=== PATIENT | male | born 1970 | race Caucasian/White ===

== ENCOUNTER 2019-11-01 11:26 | Emergency (ER) | payer BC ==
[~2019-11-01] VITALS: Ht 182.9 cm; Wt 108.2 kg
[~2019-11-01 11:26] MED LIST: ANTIVERT 25MG25 MG PO; FLONASE NASAL S16 GM NS; NO HOME MEDICATIONS; NORCO 325 MG-51 TAB PO
[2019-11-01 11:39] VITALS: TEMP 99.1
[2019-11-01 12:17] LABS: BASO % 0.2 % (0.0-2.0); EOS % 0.5 % (0-4.0); GRAN % 82.6 % (42.2-75.2); HEMATOCRIT 44.1 % (42.0-52.0); LYMPH # 0.7 (1.2-3.4); MEAN CELL VOLUME 81 fl (80.0-100.0); MEAN CORPUSCULAR HEMOGLOBIN 26 pg (27.0-31.0); MEAN CORPUSCULAR HGB CONC 32 g/dl (33.0-37.0); MEAN PLATELET VOLUME 9.6 fl (7.4-10.4); MONO # 0.3 (0.1-0.6); PLATELET COUNT 277 K/mm3 (130-400); RED BLOOD COUNT 5.44 M/mm3 (4.20-5.60)
[2019-11-01 12:22] LABS: ALBUMIN 4.2 gm/dL (3.5-5.0); BILIRUBIN,TOTAL 0.4 mg/dL (0.0-1.0); CALCIUM 9.2 mg/dL (8.4-10.2); CREATININE, serum 1.05 (0.66-1.25); POTASSIUM 4.3 mmol/L (3.4-5.0); TOTAL PROTEIN 7.5 gm/dL (6.4-8.2)
[2019-11-01 13:45] VITALS: BP 105/73; PULSE 98
== END 2019-11-01 13:56 | disposition home or self-care (01) ==
LOC: COL.ER 11:26
PROVIDERS: Emergency Medicine
DX: U07.1 COVID-19 (principal); E11.9 Type 2 diabetes mellitus without complications; Z79.51 Long term (current) use of inhaled steroids; Z79.84 Long term (current) use of oral hypoglycemic drugs
CPT/HCPCS: J7030

== ENCOUNTER → 2020-03-23 | Outpatient (CLI) | payer BC | LOC: ZCOL.LAB 15:50 | DX: I15.9 Secondary hypertension, unspecified (principal); R06.02 Shortness of breath; R05 Cough ==

== ENCOUNTER 2020-05-30 07:36 | Day surgery (SDC) | payer BC ==
[~2020-05-30] VITALS: Ht 182.9 cm; Wt 115.5 kg
[2020-05-30 08:36] VITALS: BP 150/95; PULSE 85; TEMP 99
[2020-05-30] MEDS ORDERED: GLUCOPHAGE1000 MG PO (08:42)
[2020-05-30] MEDS ORDERED: VITAMIN C500 MG PO (08:43)
[2020-05-30] MEDS ORDERED: NATURAL IRON65 MG PO (08:43)
[2020-05-30 09:55] VITALS: BP 110/84; PULSE 84; TEMP 97.2
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
[2020-05-30 10:10] VITALS: BP 120/98; PULSE 77
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
[2020-05-30 10:25] VITALS: BP 135/103; PULSE 74
--- NOTE | 2020-05-30 10:25 | NUR ---
DR DOUGLAS INTO TALK WITH HIM. RECEIVED WATER AND PUDDING.
--- NOTE | 2020-05-30 10:40 | NUR ---
RECEIVED DISCHARGE INSTRUCTIONS AND VERBALIZED UNDERSTANDING. DISCONTINUED IV AND INT- CATHETER INTACT. PATIENT CALLED FOR RIDE. AFTER GETTING DRESSED PATIENT AMBULATED TO BATHROOM.
--- NOTE | 2020-05-30 10:55 | NUR ---
DISCHARGED PER WC BY NURSING STAFF TO PRIVATE CAR IN CARE OF JESSICA.
== END 2020-05-30 11:05 | disposition home or self-care (01) ==
LOC: SDCO 07:36
DX: K63.5 Polyp of colon (principal); K64.0 First degree hemorrhoids; K29.30 Chronic superficial gastritis without bleeding; D50.9 Iron deficiency anemia, unspecified; E11.9 Type 2 diabetes mellitus without complications; Z20.822 Contact with and (suspected) exposure to COVID-19; Z86.16 Personal history of COVID-19; R06.02 Shortness of breath; Z79.84 Long term (current) use of oral hypoglycemic drugs; Z79.899 Other long term (current) drug therapy; Z88.8 Allergy status to other drugs, medicaments and biological substances
CPT/HCPCS: J2704; J7030

== ENCOUNTER → 2020-06-14 | Outpatient (CLI) | payer BC ==
[~2020-06-14] MED LIST changes: +GLUCOPHAGE1000 MG PO; +NATURAL IRON65 MG PO; +VITAMIN C500 MG PO
== END ==
LOC: COL.RAD
DX: R06.02 Shortness of breath (principal)

== ENCOUNTER → 2020-11-17 | Outpatient (CLI) | payer BC | LOC: COL.RAD 12:04 | DX: R06.02 Shortness of breath (principal) | CPT/HCPCS: A9540; A9567 ==